=== PATIENT | male | born 1985 | race Hispanic/Latino ===

== ENCOUNTER 2023-10-06 22:27 | Emergency (ER) | payer SELFPAY ==
[2023-10-06] MEDS ORDERED: diphenhydrAMINE 50 MG/ML VIAL ONE (22:47)
[2023-10-06] MEDS ORDERED: methylPREDNISolone Sod Succ/PF 125 MG/2 ML VIAL ONE (22:47)
== END 2023-10-07 00:25 | disposition home or self-care (01) ==
LOC: NAV ERS 22:27
DX: T78.40XA Allergy, unspecified, initial encounter (principal)
CPT/HCPCS: 96374; 96375; J1200; J2930